=== PATIENT | male | born 1980 | race Caucasian/White ===

== ENCOUNTER 2021-11-21 16:58 | Emergency (ER) | payer OTHER, SELFPAY ==
--- NOTE | ~2021-11-21 | CT_ITS ---
EXAMINATION: CT diagnostic chest wo con DATE: 11/21/2021 17:48 INDICATION: Right-sided chest pain TECHNIQUE: Computed tomography (CT) of the chest was performed without intravenous contrast. The dose -length product (DLP) was 308.98 mGy-cm. Automated exposure control and iterative reconstruction tech nique were employed. COMPARISON: None FINDINGS: There are airspace opacities of the right middle and lower lobes. There is no pleural effus ion or pneumothorax. No pathologically enlarged thoracic lymph nodes are identified. The heart size i s normal. Calcified pulmonary nodules and calcified bilateral hilar lymph nodes are consistent with o ld granulomatous disease. There is anterior wedging of multiple midthoracic vertebral bodies, likely physiologic. IMPRESSION: 1. Airspace opacities of the right middle and lower lobes, consistent with pneumonia. Reviewed, dictated and finalized at location F. LOGY REP IMPRESSION: 1. Airspace opacities of the right middle and lower lobes, consistent with pneu monia.
[2021-11-21 17:18] VITALS: BP 148/95; PULSE 60; RESP 18; TEMP 36.3; O2SAT 99
--- NOTE | 2021-11-21 17:22 | ECG_ITS ---
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
[2021-11-21] MEDS: KETOROLAC (*BKC) 60 MG/2 ML VIAL IM (17:33)
[2021-11-21 17:42] LABS: Basophils Absolute Auto 0.03 K/mm3 (0.00-0.10); Basophils Percent Auto 0.3 % (0.0-1.0); Eosinophils Absolute Auto 0.29 K/mm3 (0.02-0.50); Eosinophils Percent Auto 2.7 % (1.0-6.0); Hematocrit 40.3 % (40.0-54.0); Hemoglobin 13.2 g/dL (14.0-18.0); Immature Granulocyte Absolute 0.04 K/mm3 (0.00-0.00); Immature Granulocyte Percent A 0.4 % (0.0-0.0); Lymphocytes Absolute Auto 2.67 K/mm3 (1.10-4.50); Mean Corpuscular HGB Conc 32.8 g/dL (32.0-36.0); Mean Corpuscular Hemoglobin 30.2 pg (27.0-31.0); Mean Corpuscular Volume 92.2 fL (78.0-102.0); Mean Platelet Volume 10.6 fl (8.7-11.0); Monocytes Absolute Auto 0.75 K/mm3 (0.10-0.90); Neutrophils Absolute Auto 6.9 K/mm3 (1.7-7.2); Neutrophils Percent Auto 64.6 % (50.0-70.0); Platelet Count Result 213 K/mm3 (150-420); Red Blood Count 4.37 M/mm3 (4.70-6.10); Red Cell Distribution Width 12.1 % (11.6-14.4); White Blood Count 10.7 K/mm3 (4.8-10.8)
[2021-11-21 17:58] LABS: Alanine Aminotransferase 21 U/L (16-63); Albumin Level 3.7 g/dL (3.4-5.0); Alkaline Phosphatase 94 U/L (46-116); Anion Gap 7 mmol/L (8-16); Aspartate Amino Transferase 10 U/L (15-37); Bilirubin,Total 0.3 mg/dL (0.00-1.00); Blood Urea Nitrogen 16 mg/dL (7-18); Carbon Dioxide 31 mmol/L (21-32); Chloride 102 mmol/L (98-108); Estimated CRCL calculation 91 ml/min; Estimated Glomerular Filt Rate > 60; Glucose 86 mg/dL (70-99); Osmolality Calculated 290 mOsm/kg (285-295); Potassium 3.8 mmol/L (3.5-5.1); Sodium 140 mmol/L (136-145); Total Protein 7.3 g/dL (6.4-8.2); Troponin I 8.7 ng/L (0.00-60.4)
--- NOTE | 2021-11-21 18:54 | ED.SOB ---
HPI - SOB/Dyspnea General Chief Complaint: Shortness of Breath/Dyspnea Stated Complaint: uri Time Seen by Provider: 11/21/21 16:59 Source: patient and RN notes reviewed Mode of arrival: ambulatory Limitations: no limitations History of Present Illness MD elicited complaint: shortness of breath and pain with inspiration Pertinent past history: COPD Onset (ago): day(s) (2) Timing: constant Severity: moderate Exacerbating factors: inspiration Relieving factors: rest Associated symptoms: chest pain and pain with inspiration Treatment prior to arrival: none Related Data Home Medications Medication Instructions Recorded Confirmed buprenorphine-naloxone 8 film SUBLINGUAL DAILY 11/21/21 11/21/21 clonidine HCl 0.1 mg PO TID 11/21/21 11/21/21 quetiapine 50 mg PO HS 11/21/21 11/21/21 quetiapine 100 mg PO DAILY 11/21/21 11/21/21 trazodone 50 mg PO HS 11/21/21 11/21/21 Allergies Allergy/AdvReac Type Severity Reaction Status Date / Time amoxicillin Allergy Unknown Verified 11/21/21 18:15 Review of Systems Review of Systems: All systems reviewed & are unremarkable except as noted in HPI and below PMFSH Past Medical History Medical History (Updated 12/07/21 @ 05:35 by Orestes Blunt MD) Community acquired pneumonia Exam Const: General: no acute distress and alert Nutritional Appearance: well nourished Orientation/consciousness: patient oriented x3 Limitations: no limitations HENMT: Head: normal to inspection Ears: external ears normal, TM's normal bilaterally and EAC's normal General nose exam: Normal external nose present and Normal nares present Face and sinus: normal facial exam and sinuses nontender Mouth: Yes moist mucous membranes Eyes: Conjunctivae: conjunctivae normal Pupils: Equal, round and reactive pupils present EOM: EOMs intact bilaterally Neck: Neck: normal visual inspection and no lymphadenopathy Chest: Chest palpation & inspection: normal inspection of the chest Resp: Effort & Inspection: normal respiratory effort Auscultation: crackles and rhonchi Cardio: Rate: regular rate Rhythm: regular rhythm GI: GI Palp: Yes Soft to palpation and No Tenderness to palpation present (GI) : General: Yes no CVA tenderness Male General Exam: Yes normal external exam Testes: Testes normal Back/Spine/Pelvis: Back: no CVA tenderness Skin: General skin exam: normal color Rashes: no rashes Neuro: General: patient oriented x3, moves all extremities, no meningeal signs, no focal motor deficits and CN's II-XI intact bilaterally Extrem: General: normal to inspection and no pedal edema Psych: Mental Status: mental status grossly normal Affect: normal affect Attitude: cooperative Thought content: Yes Normal thought content present Course Course Emergency Course: Pt was improved in ED. less SOB and chest wall pain Reevaluation(s) Reevaluation #1: VSS Date: 11/21/21 Time: 17:49 Vital Signs Vital signs: Vital Signs Temperature 36.3 C L 11/21/21 17:18 Pulse Rate 60 11/21/21 17:18 Respiratory Rate 18 11/21/21 17:18 Blood Pressure 148/95 H 11/21/21 17:18 Pulse Oximetry 99 11/21/21 17:18 Temperature 36.3 C L 11/21/21 17:18 Pulse Rate 70 11/21/21 19:42 Respiratory Rate 16 11/21/21 19:42 Blood Pressure 159/90 H 11/21/21 19:42 Pulse Oximetry 98 11/21/21 19:42 MDM - SOB/Dyspnea Differential Diagnosis Differential diagnosis: Likely acute exacerbation of chronic obstructive airways disease and community acquired pneumonia Medical Records Attestation: I reviewed the patient's medical records. Lab Data Attestation: I reviewed the patient's lab results. Result diagrams: 11/21/21 17:37 11/21/21 17:37 Labs: Lab Results 11/21/21 11/21/21 Range/Units 17:37 17:37 WBC 10.7 (4.8-10.8) K/mm3 RBC 4.37 L (4.70-6.10) M/mm3 Hgb 13.2 L (14.0-18.0) g/dL Hct 40.3 (40.0-54.0) % MCV 92.2 (78.0-102.0) fL MCH 30.2 (27.
[2021-11-21] MEDS: guaiFENesin 12 HR 600 MG TABCR (19:12)
[2021-11-21] MEDS: AZITHROMYCIN 250 MG TABLET 500 MG PO (19:12)
[2021-11-21 19:13] LABS: Base Excess ABG 3.3 mmol/L (0-2); HCO3 ABG 27.7 mmol/L (23-29); Oxygen Content ABG 17.7 %vol (16.0-22.0); Oxygen Saturation ABG 97.3 % (95-97); PCO2 ABG 41.3 mmHg (35-45); PO2 ABG 98.3 mmHg (80-90); Total Hemoglobin 12.9 g/dL (12.0-18.0); pH ABG 7.44 (7.35-7.45)
[2021-11-21] MEDS: LIDOCAINE HCL 1% LOCAL INJ 20 ML VIAL (19:13)
[2021-11-21] MEDS: cefTRIAXone 1 GM VIAL IM (19:13)
[2021-11-21 19:14] LABS: Device ROOM AIR; Modified Allen's Test Pass; Site Drawn RIGHT RADIAL
[2021-11-21 19:42] VITALS: BP 159/90; PULSE 70; RESP 16; O2SAT 98
== END 2021-11-21 19:46 | disposition home or self-care (01) ==
PROVIDERS: Emergency Provider Emergency Medicine
DX: J18.9 Pneumonia, unspecified organism (principal)
CPT/HCPCS: 36415; 36600; 71250; 80053; 82805; 84484; 85025; 87040; 93005; 96372; 99284; A9270; J0696; J1885

== ENCOUNTER 2025-06-14 16:01 | Emergency (ER) | payer OTHER, SELFPAY ==
--- NOTE | ~2025-06-14 | XR_ITS ---
EXAMINATION: XR elbow LT min 3V, 06/14/2025 16:18 CDT HISTORY: stuck by thorn rodriguez, possible retained foreign body COMPARISON: No comparisons available. Findings: No acute fracture or malalignment. No significant degenerative changes. Soft tissues unremarkable. Impression: No acute fracture or malalignment. Reviewed, dictated and finalized at location A. Impression: No acute fracture or malalignment.
--- NOTE | ~2025-06-14 | CT_ITS ---
EXAMINATION: CT elbow LT wo con DATE: 06/14/2025 17:15 INDICATION: Left elbow foreign body. TECHNIQUE: Computed tomography (CT) of the left elbow was performed without intravenous contrast. Automated exposure control and iterative reconstruction technique were employed. The dose-length product was 419.03 mGy-cm. COMPARISON: Left elbow radiographs 06/14/2025 FINDINGS: Alignment is normal. No fracture. There is mild elbow joint osteoarthritis. No elbow joint effusion. There is posterior soft tissue swelling. There is a 5 mm linear subcutaneous foreign body posterior to the proximal forearm (sagittal image 66). IMPRESSION: 1. 5 mm linear subcutaneous foreign body posterior to the proximal forearm. Reviewed, dictated and finalized at location E.
[2025-06-14 16:01] VITALS: BP 149/88; PULSE 81; RESP 16; TEMP 36.4; O2SAT 98
--- NOTE | 2025-06-14 16:13 | ED.SKABFB ---
HPI - Skin/Abscess/Foreign Bdy General Chief complaint: Skin/Abscess/Foreign Body Stated complaint: thorn in arm Time Seen by Provider: 06/14/25 16:13 Source: patient Mode of arrival: ambulatory Limitations: no limitations History of Present Illness HPI narrative: Patient is a 45-year-old male with left elbow pain and swelling after hitting into a thorn rodriguez prior to arrival. About 3 hours ago he fell back into a thorn rodriguez and has multiple puncture wounds on the left elbow. He is concerned about residual thorns and possibly removal of these thorns. MD complaint: other (Multiple puncture wounds from thorns to the left elbow) Onset (ago): hour(s) (3) Tetanus up to date: yes Location: LUE (Elbow) Severity: mild Severity scale (1-10): 3 Quality: burning and sharp Pain Consistency: constant Relieving factors: rest Exacerbating factors: palpation and movement Context: other (Patient has left elbow puncture wounds from thorn rodriguez 3 hours ago and residual thorns are a concern to the patient) Associated symptoms: denies other symptoms Treatments prior to arrival: other (Removal of thorns on his own prior to arrival) Related Data Home Medications ?Medication ?Instructions ?Recorded ?Confirmed ?Last Taken ?Type buprenorphine 8 mg-naloxone 2 mg 8 film sublingual DAILY 11/21/21 11/21/21 Unknown History sublingual film clonidine HCl 0.1 mg tablet 0.1 mg PO TID 11/21/21 11/21/21 Unknown History quetiapine 100 mg tablet 100 mg PO DAILY 11/21/21 11/21/21 Unknown History quetiapine 50 mg tablet 50 mg PO HS 11/21/21 11/21/21 Unknown History trazodone 50 mg tablet 50 mg PO HS 11/21/21 11/21/21 Unknown History Allergies Allergy/AdvReac Type Severity Reaction Status Date / Time amoxicillin Allergy Unknown Verified 06/14/25 16:07 Review of Systems Review of Systems: All systems reviewed & are unremarkable except as noted in HPI and below Constitutional: Constitutional: Reports no additional constitutional complaints Eyes: Eyes: Reports no additional eye complaints ENT: Reports system reviewed and no additional complaints, except as documented Cardiovascular: Cardiovascular: Reports no additional cardiovascular complaints Respiratory: Respiratory: Reports no additional respiratory complaints Gastrointestinal: Gastrointestinal: Reports no additional gastrointestinal complaints Genitourinary: Genitourinary: Reports no additional male genitourinary complaints Musculoskeletal: Musculoskeletal: Reports no additional musculoskeletal complaints Integumentary/Breasts: Skin/Breast: Reports system reviewed and no additional complaints, except as docu Neurologic: Reports system reviewed and no additional complaints, except as documented Psychiatric: Psychiatric: Reports no additional psychiatric complaints Endocrine: Endocrine: Reports no additional endocrine complaints Hematologic/Lymphatic: Hematologic/Lymphatic: Reports no additional hematologic/lymphatic complaints Allergic/Immunologic: Allergic/Immunologic: Reports no additional allergic/immunologic complaints PMFSH Past Medical History Medical History Community acquired pneumonia Exam Const: General: healthy appearing Nutritional Appearance: well nourished Orientation/consciousness: patient oriented x3 HENMT: Head: normal to inspection Ears: external ears normal Face/Nose/Sinus: Normal external nose present Eyes: Conjunctivae: conjunctivae normal Pupils: Equal, round and reactive pupils present EOM: EOMs intact bilaterally Neck: Neck: normal visual inspection Chest: Chest palpation & inspection: normal inspection of the chest Resp: Effort & Inspection: normal respiratory effort and not labored Auscultation: clear to auscultation bilaterally and no crackles Cardio: Rate: regular rate Rhythm: regular rhythm Heart sounds: no murmurs GI: Inspection: non-distended Auscultation: normal bowel sounds : General: Yes bladder normal to palpation Back/Spine/Pelvis: Back: no CVA tenderness Skin: General skin exam: normal color Rashes: no rashes Wounds: wound noted Other: Left elbow has inflamed and irritated areas with swelling at sites of thorn puncture wounds without pus Neuro: General: patient oriented x3, moves all extremities and no meningeal signs Extrem: General: normal to inspection Psych: Mental Status: mental status grossly normal Affect: normal affect Attitude: cooperative Course Vital Signs Vital signs: Vital Signs Temperature 36.4 C 06/14/25 16:01 Pulse Rate 81 06/14/25 16:01 Respiratory Rate 16 06/14/25 16:01 Blood Pressure 149/88 H 06/14/25 16:01 Pulse Oximetry 98 06/14/25 16:01 Oxygen Delivery Room Air 06/14/25 16:01 Temperature 36.4 C 06/14/25 16:01 Pulse Rate 65 06/14/25 18:56 Respiratory Rate 15 06/14/25 18:56 Blood Pressure 142/91 H 06/14/25 18:56 Pulse Oximetry 99 06/14/25 18:56 Oxygen Delivery Room Air 06/14/25 18:56 MDM - Skin/Abscess/Foreign Bdy MDM Narrative Medical decision making narrative: Patient is a 45-year-old male with a left elbow puncture wound site from a thorn rodriguez [address] hours ago. X-ray. CT scan ordered after negative x-ray. Imaging Data Attestation: I personally reviewed and interpreted this imaging study as follows: Radiologist's impression: Left elbow x-ray shows negative for acute process and soft tissue examination CT scan of the left elbow shows foreign bodies in the subcutaneous tissue along the proximal posterior left forearm soft tissue Discharge Plan Discharge Clinical Impression: Contact with nonvenomous plant thorns and spines and sharp leaves, initial encounter Patient Disposition: Home Condition: Stable Instructions: Antibiotic Form, Puncture Wound (DC) Additional Instructions: Please follow-up with a plastic surgeon or starch mangle tender next week to have these thorns removed from your left elbow. Come back to the ER if any worse symptoms occur. Patient Language: Burmese Prescriptions: New sulfamethoxazole-trimethoprim [Bactrim DS] 800-160 mg tablet 1 tablet PO BID 7 Days Qty: 14 0RF No Action clonidine HCl 0.1 mg tablet 0.1 mg PO TID trazodone 50 mg tablet 50 mg PO HS quetiapine 100 mg tablet 100 mg PO DAILY quetiapine 50 mg tablet 50 mg PO HS buprenorphine-naloxone 8-2 mg film 8 film sublingual DAILY cephalexin 500 mg tablet 500 mg PO Q6H Qty: 40 0RF azithromycin [Zithromax] 500 mg tablet 500 mg PO DAILY 5 Days Qty: 5 0RF Mucinex DM 30-600 mg tablet extended release 12 hr 1 tablet PO Q12H PRN (Reason: cough) Qty: 20 0RF methylprednisolone [Medrol] 4 mg tablet 4 mg PO DAILY MDD Rx in reducing doses. Qty: 21 0RF albuterol sulfate 90 mcg/actuation HFA aerosol inhaler 2 puff inhalation QID Qty: 8.5 0RF ibuprofen 800 mg tablet 800 mg PO TID Qty: 20 0RF omeprazole magnesium [Prilosec OTC] 20 mg tablet,delayed release (DR/EC) 20 mg PO BID Qty: 20 0RF Follow-up/Referrals: UNKNOWN,DOCTOR [Non-Staff] Time of Disposition: 19:08
[2025-06-14 18:56] VITALS: BP 142/91; PULSE 65; RESP 15; O2SAT 99
[2025-06-14] MEDS: SULFAMETHOXAZOLE/TRIMETHOPRIM 800/160 MG DS TABLET 1 TAB PO (19:13)
[2025-06-14 19:29] VITALS: BP 134/71; PULSE 87; RESP 18; TEMP 36.6; O2SAT 99
== END 2025-06-14 19:29 | disposition home or self-care (01) ==
PROVIDERS: Emergency Provider Emergency Medicine; PCP Nurse Practitioner Family
DX: S51.032A Puncture wound without foreign body of left elbow, initial encounter (principal); W26.8XXA Contact with other sharp object(s), not elsewhere classified, initial encounter
CPT/HCPCS: 73080; 73200; 99284; A9270

== ENCOUNTER 2025-06-19 17:31 | Emergency (ER) | payer OTHER, SELFPAY ==
[2025-06-19 17:32] VITALS: BP 127/77; PULSE 68; RESP 16; TEMP 37.2; O2SAT 99
--- NOTE | 2025-06-19 17:36 | ED.SKABFB ---
HPI - Skin/Abscess/Foreign Bdy General Chief complaint: Skin/Abscess/Foreign Body Stated complaint: left elbow area abscess Time Seen by Provider: 06/19/25 17:35 Source: patient Mode of arrival: ambulatory Limitations: no limitations History of Present Illness HPI narrative: Patient is a 45-year-old male with a left elbow injury from a thorn rodriguez last week. Patient was in the ER and we referred him to see a specialist to have the thorn removed but they have not called at this point. I told them to tell patient to come back in today and I will take a trial at removal of this area. CT scan showed that it was superficial and 5 mm. Tetanus up-to-date. Patient on antibiotics still for few more days. MD complaint: foreign body (Left elbow thorn) Onset (ago): week(s) (One) Tetanus up to date: yes Location: LUE (Elbow) Severity: mild Severity scale (1-10): 3 Quality: burning and sharp Pain Consistency: constant Relieving factors: immobilization Exacerbating factors: palpation and movement Context: other (Patient fell back onto a thorn rodriguez last week and residual thorn in place causing pain and irritation; patient on antibiotics) Associated symptoms: denies other symptoms Treatments prior to arrival: antibiotic Related Data Home Medications ?Medication ?Instructions ?Recorded ?Confirmed ?Last Taken ?Type buprenorphine 8 mg-naloxone 2 mg 8 film sublingual DAILY 11/21/21 11/21/21 Unknown History sublingual film clonidine HCl 0.1 mg tablet 0.1 mg PO TID 11/21/21 11/21/21 Unknown History quetiapine 100 mg tablet 100 mg PO DAILY 11/21/21 11/21/21 Unknown History quetiapine 50 mg tablet 50 mg PO HS 11/21/21 11/21/21 Unknown History trazodone 50 mg tablet 50 mg PO HS 11/21/21 11/21/21 Unknown History Allergies Allergy/AdvReac Type Severity Reaction Status Date / Time amoxicillin Allergy Unknown Verified 06/19/25 17:33 Review of Systems Review of Systems: All systems reviewed & are unremarkable except as noted in HPI and below Constitutional: Constitutional: Reports no additional constitutional complaints Eyes: Eyes: Reports no additional eye complaints ENT: Reports system reviewed and no additional complaints, except as documented Cardiovascular: Cardiovascular: Reports no additional cardiovascular complaints Respiratory: Respiratory: Reports no additional respiratory complaints Gastrointestinal: Gastrointestinal: Reports no additional gastrointestinal complaints Genitourinary: Genitourinary: Reports no additional male genitourinary complaints Musculoskeletal: Musculoskeletal: Reports no additional musculoskeletal complaints Integumentary/Breasts: Skin/Breast: Reports system reviewed and no additional complaints, except as docu Neurologic: Reports system reviewed and no additional complaints, except as documented Psychiatric: Psychiatric: Reports no additional psychiatric complaints Endocrine: Endocrine: Reports no additional endocrine complaints Hematologic/Lymphatic: Hematologic/Lymphatic: Reports no additional hematologic/lymphatic complaints Allergic/Immunologic: Allergic/Immunologic: Reports no additional allergic/immunologic complaints PMFSH Past Medical History Medical History Community acquired pneumonia Exam Const: General: healthy appearing Nutritional Appearance: well nourished Orientation/consciousness: patient oriented x3 HENMT: Head: normal to inspection Ears: external ears normal Face/Nose/Sinus: Normal external nose present Eyes: Conjunctivae: conjunctivae normal Pupils: Equal, round and reactive pupils present EOM: EOMs intact bilaterally Neck: Neck: normal visual inspection Chest: Chest palpation & inspection: normal inspection of the chest Resp: Effort & Inspection: normal respiratory effort and not labored Auscultation: clear to auscultation bilaterally and no crackles Cardio: Rate: regular rate Rhythm: regular rhythm Heart sounds: no murmurs GI: Inspection: non-distended Auscultation: normal bowel sounds : General: Yes bladder normal to palpation Back/Spine/Pelvis: Back: no CVA tenderness Skin: General skin exam: normal color Rashes: no rashes Wounds: wound noted Other: Left elbow small nidus of infection with irritation and redness minimally; the thorn can be felt under the skin Neuro: General: patient oriented x3, moves all extremities, no meningeal signs and no focal motor deficits Extrem: General: normal to inspection, no clubbing, cyanosis or edema and no pedal edema Psych: Mental Status: mental status grossly normal Affect: normal affect Attitude: cooperative Course Vital Signs Vital signs: Vital Signs Temperature 37.2 C 06/19/25 17:32 Pulse Rate 68 06/19/25 17:32 Respiratory Rate 16 06/19/25 17:32 Blood Pressure 127/77 06/19/25 17:32 Pulse Oximetry 99 06/19/25 17:32 Oxygen Delivery Room Air 06/19/25 17:32 Temperature 37.2 C 06/19/25 17:32 Pulse Rate 68 06/19/25 17:32 Respiratory Rate 16 06/19/25 17:32 Blood Pressure 127/77 06/19/25 17:32 Pulse Oximetry 99 06/19/25 17:32 Oxygen Delivery Room Air 06/19/25 17:32 Procedures Other Procedure Procedure 1: Other Procedure: Left elbow foreign body thorn removal: Area cleaned with Betadine, area anesthetized with 6 cc of lidocaine, incision made with a scalpel distally from the lesion, area squeezed and forceps used to remove the 5 mm thorn in total, area cleaned with Betadine, patient tolerated procedure well and no complications, triple antibiotic ointment and a bandage MDM - Skin/Abscess/Foreign Bdy MDM Narrative Medical decision making narrative: Patient is a 45-year-old male with a left elbow foreign body skin soft tissue thorn from a week ago still present. We will remove the foreign body today. Patient on antibiotics and tetanus up-to-date. Discharge Plan Discharge Clinical Impression: Foreign body (FB) in soft tissue Patient Disposition: Home Condition: Stable Instructions: Soft Tissue Foreign Body (ED) Patient Language: [place] Islander Prescriptions: No Action clonidine HCl 0.1 mg tablet 0.1 mg PO TID trazodone 50 mg tablet 50 mg PO HS quetiapine 100 mg tablet 100 mg PO DAILY quetiapine 50 mg tablet 50 mg PO HS buprenorphine-naloxone 8-2 mg film 8 film sublingual DAILY cephalexin 500 mg tablet 500 mg PO Q6H Qty: 40 0RF azithromycin [Zithromax] 500 mg tablet 500 mg PO DAILY 5 Days Qty: 5 0RF Mucinex DM 30-600 mg tablet extended release 12 hr 1 tablet PO Q12H PRN (Reason: cough) Qty: 20 0RF methylprednisolone [Medrol] 4 mg tablet 4 mg PO DAILY MDD Rx in reducing doses. Qty: 21 0RF albuterol sulfate 90 mcg/actuation HFA aerosol inhaler 2 puff inhalation QID Qty: 8.5 0RF ibuprofen 800 mg tablet 800 mg PO TID Qty: 20 0RF omeprazole magnesium [Prilosec OTC] 20 mg tablet,delayed release (DR/EC) 20 mg PO BID Qty: 20 0RF sulfamethoxazole-trimethoprim [Bactrim DS] 800-160 mg tablet 1 tablet PO BID 7 Days Qty: 14 0RF Follow-up/Referrals: Keith,Thao Marinelli, CONCRETE HOPPER OPERATOR [Primary Care Provider, Unknown] Time of Disposition: 18:36
[2025-06-19] MEDS: LIDOCAINE 1% LOCAL INJ 10 ML VIAL 5 ML INFILTRATE (17:47)
[2025-06-19] MEDS: NEOMYCIN/POLYMYXIN/BACITRACIN OINTMENT PACKET 1 PACKET TOPICAL (18:31)
[2025-06-19 18:40] VITALS: BP 113/82; PULSE 60; RESP 17; TEMP 37.1; O2SAT 98
== END 2025-06-19 18:41 | disposition home or self-care (01) ==
PROVIDERS: Emergency Provider Emergency Medicine; PCP Nurse Practitioner Family
DX: S51.042A Puncture wound with foreign body of left elbow, initial encounter (principal); L02.414 Cutaneous abscess of left upper limb; W19.XXXA Unspecified fall, initial encounter
CPT/HCPCS: 10120; 99282; J2003